=== PATIENT | female | born 1950 | race Caucasian/White ===

== ENCOUNTER → 2021-06-22 | Outpatient (CLI) | payer MEDICARE ==
[~2021-06-22] MED LIST: AMITRIPTYLINE H75 MG PO; COLCHICINE 0.60.6 MG PO; DICLOFENAC TOP; HYDROCHLOROTHIA25 MG PO; HYDROCODON-ACE1 EAC6 PO; LISINOPRIL40 MG PO; METFORMIN HCL1000 M1 PO; NIFEDIPINE ER90 MG PO; OMEPRAZOLE20 MG PO; PRAVASTATIN SOD40 MG PO; SPIRONOLACTONE50 MG PO; TIZANIDINE HCL4 MG PO; TRADJENTA5 MG PO; VITAMIN D21250 MCG PO; ZOFRAN ODT 4 MG4 MG PO
[2021-06-22 13:18] LABS: RED BLOOD COUNT 4.87 M/UL (4.00-5.10); WHITE BLOOD COUNT 8.8 K/UL (4.5-11.0)
[2021-06-22 13:43] LABS: BUN/CREATININE RATIO 21 (0-10)
== END ==
LOC: OPSV2 12:28
PROVIDERS: Anesthesiology Pain Medicine
DX: Z01.818 Encounter for other preprocedural examination (principal)
CPT/HCPCS: 36415; 80048; 85025; 93005